=== PATIENT | female | born 1995 | race Caucasian/White ===

== ENCOUNTER → 2018-04-19 19:36 | Outpatient (CLI) | payer OTHER, SELFPAY ==
--- NOTE | 2018-04-19 19:43 | DI.RAD.S_ITS ---
PROCEDURE: XR WRIST RT MIN 3V INDICATIONS: pain right wrist-FOOSH 3 weeks ago TECHNIQUE: 3 views of the wrist were acquired. COMPARISON: [facility], , FOREARM RIGHT, 09/06/2008, 13:17. FINDINGS: Bones: No definitive fractures or dislocations. There is a lucency in the area of triquetrum which may be caused by artifact. No suspicious bony lesions. Scaphoid view: Scaphoid is intact. Soft tissues: No suspicious soft tissue calcifications. IMPRESSION: 1. No definitive fracture. 2. Lucency in the triquetrum may be caused by artifact but a nondisplaced fracture cannot be excluded. Recommend a repeat x-ray in 7-10 days if clinical symptoms persist. Dictated by: Dacia Patel M.D. on 04/19/2018 at 20:34 Approved by: Dacia Patel M.D. on 04/19/2018 at 20:37
== END ==
PROVIDERS: Family Provider Pediatrics; PCP Family Medicine
DX: M25.531 Pain in right wrist (principal)
CPT/HCPCS: 73110

== ENCOUNTER 2018-05-11 07:30 | Outpatient (RCR) | payer OTHER, SELFPAY ==
--- NOTE | 2018-04-04 08:17 | PT.OTN ---
Addendum entered and electronically signed by Caro Ley, PT 04/04/18 16:00: Transition note: On March 29, 2018 our therapy services consisting of Speech, Occupational, and Physical Therapy transitioned from the [employer] electronic documentation system to a new [employer] electronic documentation system.?? All documentation prior to March 29 can be found under [employer] saved data. From March 29 forward all medical record documentation will be in [email or web address]. Original Note: Current Diagnoses Cervicalgia (04/04/18) Dorsalgia, unspecified (04/04/18) Abnormal posture (04/04/18) Weakness (04/04/18) Physical Therapy Treatment Note PT-OP-A Visit Information Start: 04/04/18 07:22 Freq: Status: Active Protocol: Activity Type Activity Date Activity User E-Sign Co-Sign Detail Recorded Client Recorded Date Recorded By Document 04/04/18 07:30 [facility] [id number] 04/04/18 08:16 [facility] 04/04/18 07:30 Out-Patient Physical Therapy Visit Information [Visit Information] -Visit Type Treatment Note -Visit Start Time 07:30 -Visit Stop Time 08:30 -Total Visit Minutes 60 -Number of STRAP SEWER Visits 0 PT-OP-C Subjective Start: 04/04/18 07:22 Freq: Status: Active Protocol: Activity Type Activity Date Activity User E-Sign Co-Sign Detail Recorded Client Recorded Date Recorded By Document 04/04/18 07:30 [facility] [id number] 04/04/18 08:16 [facility] 04/04/18 07:30 OP-PT Subjective [Patient Comments] -Patient Comments Pt reports doing HEP daily . Does them at night and that helps the most. PT-OP-Q Treatments Start: 04/04/18 07:22 Freq: Status: Active Protocol: Activity Type Activity Date Activity User E-Sign Co-Sign Detail Recorded Client Recorded Date Recorded By Document 04/04/18 07:30 [facility] [id number] 04/04/18 08:16 [facility] 04/04/18 07:30 Therapeutic Exercises [Supine Exercises] 2 -Supine Exercise Name scissors -Side bilateral -Reps/Minutes 2x10 1 -Supine Exercise Name foam roll: shoulder flex, abd, Habd -Side bilateral -Reps/Minutes 10 each [Sidelying Exercises] 1 -Sidelying Exercise Name hip abd at wall -Side bilateral -Reps/Minutes 2x10 [Other Exercises] 1 -Other Exercise Name Alt LE hip ext quadruped -Side bilateral -Reps/Minutes 15 Manual Therapy Treatment [Soft Tissue Mobilization] 1 -Body Location QL & Es -Mobilization Type Rolling -Intensity/Depth Moderate -Body Position Prone -Comments x15 min [Joint Mobilizations] 1 -Joint sacrum -Direction PA & caudal FM -Body Position Prone PT-OP-R Modalities Start: 04/04/18 07:22 Freq: Status: Active Protocol: Activity Type Activity Date Activity User E-Sign Co-Sign Detail Recorded Client Recorded Date Recorded By Document 04/04/18 07:30 [facility] [id number] 04/04/18 08:16 [facility] 04/04/18 07:30 Hot Pack/Cold Pack [Treatment] Hot Pack -Location lumbar & cervical -Patient Position Hooklying -Treatment Duration (minutes) 15 PT-OP-T Assessment and Plan Start: 04/04/18 07:22 Freq: Status: Active Protocol: Activity Type Activity Date Activity User E-Sign Co-Sign Detail Recorded Client Recorded Date Recorded By Document 04/04/18 07:30 [facility] [id number] 04/04/18 08:16 [facility] 04/04/18 07:30 Physical Therapy Assessment [Assessment Summary] -Assessment Pt requires cont cueing during core stabilization exercises. Physical Therapy Plan [Frequency and Duration] -Frequency of Treatment 2x/Week -Plan of Care End Date 05/20/18 [Next Visit Focus/Plan] -Next Visit Plan Advance core
--- NOTE | 2018-04-11 08:15 | PT.OTN ---
Current Diagnoses Cervicalgia (04/11/18) Dorsalgia, unspecified (04/11/18) Abnormal posture (04/11/18) Weakness (04/11/18) Physical Therapy Treatment Note PT-OP-A Visit Information Start: 04/04/18 07:22 Freq: Status: Active Protocol: Document 04/11/18 07:31 [facility] (Rec: 04/11/18 08:15 [facility] [id number]) Out-Patient Physical Therapy Visit Information Visit Information Visit Type Treatment Note Visit Start Time 07:30 Visit Stop Time 08:30 Total Visit Minutes 60 Visit Number 5 Number of LAB ANALYST Visits 0 PT-OP-C Subjective Start: 04/04/18 07:22 Freq: Status: Active Protocol: Document 04/11/18 07:31 [facility] (Rec: 04/11/18 08:15 [facility] [id number]) OP-PT Subjective Patient Comments Patient Comments Exercises going well.Pain is a lot better. Notes at the end of her work day is the worst. PT-OP-Q Treatments Start: 04/04/18 07:22 Freq: Status: Active Protocol: Document 04/11/18 07:31 [facility] (Rec: 04/11/18 08:15 [facility] [id number]) Therapeutic Exercises Supine Exercises 5 Supine Exercise Name axial elongation Reps/Minutes 4 4 Supine Exercise Name rolling out LE on foam roll 3 Supine Exercise Name foam roll marches then bugs Reps/Minutes 15 each 2 Supine Exercise Name scissors to dying bugs Side bilateral Reps/Minutes 2x10 1 Supine Exercise Name foam roll: shoulder flex, abd, Habd Side bilateral Reps/Minutes 10 each Sidelying Exercises 1 Sidelying Exercise Name hip abd at wall Side bilateral Reps/Minutes 2x10 Other Exercises 1 Other Exercise Name Alt LE hip ext quadruped Side bilateral Reps/Minutes 15 Manual Therapy Treatment Soft Tissue Mobilization 2 Body Location UT Mobilization Type Rolling Intensity/Depth Moderate 1 Body Location QL & Es Mobilization Type Rolling Intensity/Depth Moderate Body Position Prone Joint Mobilizations 3 Joint Thoracic Direction PA Comments T5-12 2 Joint Innominate Direction ER & caudal gliding Body Position Prone Comments FM 1 Joint sacrum Direction PA & caudal FM Body Position Prone PT-OP-R Modalities Start: 04/04/18 07:22 Freq: Status: Active Protocol: Document 04/11/18 07:31 [facility] (Rec: 04/11/18 08:15 [facility] [id number]) Hot Pack/Cold Pack Treatment Hot Pack Location lumbar & cervical Patient Position Hooklying Treatment Duration (minutes) 15 PT-OP-T Assessment and Plan Start: 04/04/18 07:22 Freq: Status: Active Protocol: Document 04/11/18 07:31 [facility] (Rec: 04/11/18 08:15 [facility] [id number]) Physical Therapy Assessment Assessment Summary Assessment Min cueing required for exercises for form. Pt is improving with SI mobility. Physical Therapy Plan Frequency and Duration Frequency of Treatment 2x/Week Plan of Care End Date 05/20/18 Next Visit Focus/Plan Next Visit Plan Cont to work on core & LE stability
--- NOTE | 2018-04-15 09:01 | PT.OTN ---
Current Diagnoses Cervicalgia (04/15/18) Dorsalgia, unspecified (04/15/18) Abnormal posture (04/15/18) Weakness (04/15/18) Physical Therapy Treatment Note PT-OP-A Visit Information Start: 04/04/18 07:22 Freq: Status: Active Protocol: Document 04/15/18 08:15 [facility] (Rec: 04/15/18 09:01 [facility] [id number]) Out-Patient Physical Therapy Visit Information Visit Information Visit Type Treatment Note Visit Start Time 08:15 Visit Stop Time 09:15 Total Visit Minutes 60 Visit Number 6 PT-OP-C Subjective Start: 04/04/18 07:22 Freq: Status: Active Protocol: Document 04/15/18 08:15 [facility] (Rec: 04/15/18 09:00 [facility] [id number]) OP-PT Subjective Patient Comments Patient Comments Pain has not been too bad. Patient Reported Progress Improving PT-OP-Q Treatments Start: 04/04/18 07:22 Freq: Status: Active Protocol: Document 04/15/18 08:15 [facility] (Rec: 04/15/18 09:00 [facility] [id number]) Gym Equipment Therapeutic Ball 2 Exercise Details knee ext Ball Size/Color 55 cm Body Position Sitting Reps/Duration 2x10 1 Exercise Details marching Ball Size/Color 55 cm Body Position Sitting Reps/Duration 2x10 Therapeutic Exercises Supine Exercises 6 Supine Exercise Name bridge with march Reps/Minutes 10 5 Supine Exercise Name axial elongation Reps/Minutes 4 3 Supine Exercise Name foam roll marches then bugs Reps/Minutes 15 each 1 Supine Exercise Name foam roll: shoulder flex, abd, Habd Side bilateral Reps/Minutes 10 each Manual Therapy Treatment Soft Tissue Mobilization 1 Body Location QL & Es Mobilization Type Rolling Intensity/Depth Moderate Body Position Prone Joint Mobilizations 4 Joint hip Direction on axis ER FM Body Position Prone Comments neuro re edu after 3 Joint Thoracic Direction PA Comments T5-12 2 Joint Innominate Direction ER & caudal gliding & ext Body Position Prone Comments FM 1 Joint sacrum Direction PA & caudal FM Body Position Prone PT-OP-R Modalities Start: 04/04/18 07:22 Freq: Status: Active Protocol: Document 04/15/18 08:15 [facility] (Rec: 04/15/18 09:01 [facility] [id number]) Hot Pack/Cold Pack Treatment Hot Pack Location lumbar & cervical Patient Position Hooklying Treatment Duration (minutes) 15 PT-OP-T Assessment and Plan Start: 04/04/18 07:22 Freq: Status: Active Protocol: Document 04/15/18 08:15 [facility] (Rec: 04/15/18 09:00 [facility] [id number]) Physical Therapy Assessment Assessment Summary Assessment Improving pelvic positioning with inc ease of mobilizations . Improving tolerance to advancing core control. Physical Therapy Plan Frequency and Duration Frequency of Treatment 2x/Week Plan of Care End Date 05/20/18 Next Visit Focus/Plan Next Visit Plan Cont to work on postural stability
--- NOTE | 2018-04-22 09:00 | PT.OTN ---
Current Diagnoses Cervicalgia (04/22/18) Dorsalgia, unspecified (04/22/18) Abnormal posture (04/22/18) Weakness (04/22/18) Physical Therapy Treatment Note PT-OP-A Visit Information Start: 04/04/18 07:22 Freq: Status: Active Protocol: Document 04/22/18 08:16 [facility] (Rec: 04/22/18 09:00 [facility] [id number]) Out-Patient Physical Therapy Visit Information Visit Information Visit Type Treatment Note Visit Start Time 08:15 Visit Stop Time 09:15 Total Visit Minutes 60 Visit Number 7 Number of LIME BURNER Visits 0 PT-OP-C Subjective Start: 04/04/18 07:22 Freq: Status: Active Protocol: Document 04/22/18 08:16 [facility] (Rec: 04/22/18 09:00 [facility] [id number]) OP-PT Subjective Patient Comments Patient Comments Pt reports falling over when doing exercises a couple weeks ago and spraining her wrist. Wearing a wrist brace. Pain has been a lot less than she is used to. Patient Reported Progress Improving PT-OP-Q Treatments Start: 04/04/18 07:22 Freq: Status: Active Protocol: Document 04/22/18 08:16 [facility] (Rec: 04/22/18 09:00 [facility] [id number]) Gym Equipment Therapeutic Ball 2 Exercise Details knee ext w/B shoulder flex Ball Size/Color 55 cm Body Position Sitting Reps/Duration 2x10 1 Exercise Details marching w/ alt flex Ball Size/Color 55 cm Body Position Sitting Reps/Duration 2x10 Therapeutic Exercises Supine Exercises 6 Supine Exercise Name bridge with march Reps/Minutes 10 5 Supine Exercise Name axial elongation Reps/Minutes 4 3 Supine Exercise Name foam roll marches then bugs Reps/Minutes 15 each 2 Supine Exercise Name scissors to dying bugs Side bilateral Equipment Used foam roll Reps/Minutes 2x10 Standing Exercises 3 Standing Exercise Name flex w/retract Side bilateral Resistance L2 Reps/Minutes 10 2 Standing Exercise Name ER Side bilateral Resistance L2 Reps/Minutes 10 1 Standing Exercise Name ext B Resistance L3 Manual Therapy Treatment Soft Tissue Mobilization 1 Body Location QL & Es Mobilization Type Rolling Intensity/Depth Moderate Body Position Prone Joint Mobilizations 4 Joint hip Direction on axis ER FM Body Position Prone Comments neuro re edu after 3 Joint Thoracic Direction PA Comments T5-12 & R UPA w/c/r rotation 2 Joint Innominate Direction ER & caudal gliding & ext Body Position Prone Comments FM 1 Joint sacrum Direction PA & caudal FM Body Position Prone PT-OP-R Modalities Start: 04/04/18 07:22 Freq: Status: Active Protocol: Document 04/22/18 08:16 [facility] (Rec: 04/22/18 09:00 [facility] [id number]) Hot Pack/Cold Pack Treatment Hot Pack Location lumbar & cervical Patient Position Hooklying Treatment Duration (minutes) 15 PT-OP-T Assessment and Plan Start: 04/04/18 07:22 Freq: Status: Active Protocol: Document 04/22/18 08:16 [facility] (Rec: 04/22/18 09:00 [facility] [id number]) Physical Therapy Assessment Assessment Summary Assessment Pt is improving with pelvic & sacral positioning. No pain with scapular stability exercises Physical Therapy Plan Frequency and Duration Frequency of Treatment 2x/Week Plan of Care End Date 05/20/18 Next Visit Focus/Plan Next Visit Plan Cont to work on postural stability Please Sign and Return: I have reviewed this Plan of Care and certify that the skilled therapy services above are required to meet the patient???s needs. Physician Signature Date Printed Name and Credentials Clinical Instructor Signature Printed Name and Credentials
--- NOTE | 2018-04-26 09:03 | PT.OTN ---
Current Diagnoses Cervicalgia (04/26/18) Dorsalgia, unspecified (04/26/18) Abnormal posture (04/26/18) Weakness (04/26/18) Physical Therapy Treatment Note PT-OP-A Visit Information Start: 04/04/18 07:22 Freq: Status: Active Protocol: Document 04/26/18 08:11 [facility] (Rec: 04/26/18 09:02 [facility] [id number]) Out-Patient Physical Therapy Visit Information Visit Information Visit Type Treatment Note Visit Start Time 08:15 Visit Stop Time 09:15 Total Visit Minutes 60 Visit Number 8 Number of DIRECTOR DIGITAL ANALYTICS Visits 0 PT-OP-C Subjective Start: 04/04/18 07:22 Freq: Status: Active Protocol: Document 04/26/18 08:11 [facility] (Rec: 04/26/18 09:02 [facility] [id number]) OP-PT Subjective Patient Comments Patient Comments Pt helped aunt go through boxes. Notes back and neck feel good. Wrist has twinges when putting pressure against it. PT-OP-Q Treatments Start: 04/04/18 07:22 Freq: Status: Active Protocol: Document 04/26/18 08:11 [facility] (Rec: 04/26/18 09:02 [facility] [id number]) Gym Equipment Therapeutic Ball 2 Exercise Details knee ext w/B shoulder flex Ball Size/Color 65 cm Body Position Sitting Reps/Duration 2x10 Therapeutic Exercises Supine Exercises 7 Supine Exercise Name B leg ext Reps/Minutes 10 6 Supine Exercise Name bridge with march Reps/Minutes 10 5 Supine Exercise Name axial elongation Reps/Minutes 4 3 Supine Exercise Name foam roll marches then bugs Reps/Minutes 15 each 1 Supine Exercise Name foam roll: shoulder flex, abd, Habd Side bilateral Reps/Minutes 10 each Standing Exercises 3 Standing Exercise Name flex w/retract Side bilateral Resistance L2 Reps/Minutes 20 2 Standing Exercise Name ER Side bilateral Resistance L2 Reps/Minutes 20 1 Standing Exercise Name ext B Resistance L3 Manual Therapy Treatment Soft Tissue Mobilization 1 Body Location QL & Es Mobilization Type Rolling Intensity/Depth Moderate Body Position Prone Joint Mobilizations 4 Joint hip Direction on axis ER FM Body Position Prone Comments neuro re edu after 3 Joint Thoracic Direction PA Comments T5-12 & R UPA w/c/r rotation 2 Joint Innominate Direction ER & caudal gliding & ext Body Position Prone Comments FM PT-OP-R Modalities Start: 04/04/18 07:22 Freq: Status: Active Protocol: Document 04/26/18 08:11 [facility] (Rec: 04/26/18 09:02 [facility] [id number]) Hot Pack/Cold Pack Treatment Hot Pack Location lumbar & cervical Patient Position Hooklying Treatment Duration (minutes) 15 PT-OP-T Assessment and Plan Start: 04/04/18 07:22 Freq: Status: Active Protocol: Document 04/26/18 08:11 [facility] (Rec: 04/26/18 09:02 [facility] [id number]) Physical Therapy Assessment Assessment Summary Assessment Pt required cueing for posture during exercises. Cont to improve with soft tissue tightness. Physical Therapy Plan Frequency and Duration Frequency of Treatment 2x/Week Plan of Care End Date 05/20/18 Next Visit Focus/Plan Next Visit Plan Cont to work on postural stability Please Sign and Return: I have reviewed this Plan of Care and certify that the skilled therapy services above are required to meet the patient???s needs. Physician Signature Date Printed Name and Credentials Clinical Instructor Signature Printed Name and Credentials
--- NOTE | 2018-05-06 08:15 | PT.OTN ---
Current Diagnoses Cervicalgia (05/06/18) Dorsalgia, unspecified (05/06/18) Abnormal posture (05/06/18) Weakness (05/06/18) Physical Therapy Treatment Note PT-OP-A Visit Information Start: 04/04/18 07:22 Freq: Status: Active Protocol: Document 05/06/18 07:33 [facility] (Rec: 05/06/18 08:14 [facility] [id number]) Out-Patient Physical Therapy Visit Information Visit Information Visit Type Treatment Note Visit Start Time 07:30 Visit Stop Time 08:15 Total Visit Minutes 55 Visit Number 9 Number of HARNESSMAKER Visits 0 PT-OP-C Subjective Start: 04/04/18 07:22 Freq: Status: Active Protocol: Document 05/06/18 07:33 [facility] (Rec: 05/06/18 08:14 [facility] [id number]) OP-PT Subjective Patient Comments Patient Comments Reports pain has been minimal. Missed last appt because her pillow shaker to wake her up has not been working. PT-OP-Q Treatments Start: 04/04/18 07:22 Freq: Status: Active Protocol: Document 05/06/18 07:33 [facility] (Rec: 05/06/18 08:14 [facility] [id number]) Therapeutic Exercises Supine Exercises 7 Supine Exercise Name B leg ext Reps/Minutes 10 6 Supine Exercise Name bridge with march Reps/Minutes 10 5 Supine Exercise Name axial elongation Reps/Minutes 4 3 Supine Exercise Name foam roll marches then bugs Reps/Minutes 15 each 1 Supine Exercise Name foam roll: shoulder flex, abd, Habd Side bilateral Reps/Minutes 10 each Sidelying Exercises 1 Sidelying Exercise Name abd vs wall Reps/Minutes 10 Standing Exercises 3 Standing Exercise Name flex w/retract Side bilateral Resistance L2 Reps/Minutes 20 2 Standing Exercise Name ER Side bilateral Resistance L2 Reps/Minutes 20 1 Standing Exercise Name ext B Resistance L4 Manual Therapy Treatment Soft Tissue Mobilization 1 Body Location QL & Es Mobilization Type Rolling Intensity/Depth Moderate Body Position Prone Joint Mobilizations 4 Joint hip Direction on axis ER FM Body Position Prone Comments neuro re edu after 3 Joint Thoracic Direction PA Comments T5-12 & R UPA w/c/r rotation 2 Joint Innominate Direction ER & caudal gliding & ext Body Position Prone Comments FM PT-OP-R Modalities Start: 04/04/18 07:22 Freq: Status: Active Protocol: Document 05/06/18 07:33 [facility] (Rec: 05/06/18 08:14 [facility] [id number]) Hot Pack/Cold Pack Treatment Hot Pack Location lumbar & cervical Patient Position Hooklying Treatment Duration (minutes) 15 PT-OP-T Assessment and Plan Start: 04/04/18 07:22 Freq: Status: Active Protocol: Document 05/06/18 07:33 [facility] (Rec: 05/06/18 08:14 [facility] [id number]) Physical Therapy Assessment Assessment Summary Assessment Pt is improved with mechanics during exercises. Min cueing for s/l abd & shoulder flex w/ retraction. Physical Therapy Plan Frequency and Duration Frequency of Treatment 2x/Week Plan of Care End Date 05/20/18 Next Visit Focus/Plan Next Note Type Treatment Note Next Visit Plan Review HEP to d/c next wed Please Sign and Return: I have reviewed this Plan of Care and certify that the skilled therapy services above are required to meet the patient?s needs. Physician Signature Date Printed Name and Credentials Clinical Instructor Signature Printed Name and Credentials
--- NOTE | 2018-05-09 08:14 | PT.OTN ---
Current Diagnoses Cervicalgia (05/09/18) Dorsalgia, unspecified (05/09/18) Abnormal posture (05/09/18) Weakness (05/09/18) Physical Therapy Treatment Note PT-OP-A Visit Information Start: 04/04/18 07:22 Freq: Status: Active Protocol: Document 05/09/18 07:33 [facility] (Rec: 05/09/18 08:14 [facility] [id number]) Out-Patient Physical Therapy Visit Information Visit Information Visit Type Treatment Note Visit Start Time 07:30 Visit Stop Time 08:25 Total Visit Minutes 55 PT-OP-C Subjective Start: 04/04/18 07:22 Freq: Status: Active Protocol: Document 05/09/18 07:33 [facility] (Rec: 05/09/18 08:14 [facility] [id number]) OP-PT Subjective Patient Comments Patient Comments Some stiffness Wednesday in [place]. Notes she did some activities at a [employer]. PT-OP-Q Treatments Start: 04/04/18 07:22 Freq: Status: Active Protocol: Document 05/09/18 07:33 [facility] (Rec: 05/09/18 08:14 [facility] [id number]) Therapeutic Exercises Supine Exercises 8 Supine Exercise Name flex & diagonal abdominal series 7 Supine Exercise Name B leg ext Reps/Minutes 10 6 Supine Exercise Name bridge with march Reps/Minutes 10 5 Supine Exercise Name axial elongation Reps/Minutes 4 3 Supine Exercise Name foam roll marches then bugs Reps/Minutes 15 each 1 Supine Exercise Name foam roll: shoulder flex, abd, Habd Side bilateral Reps/Minutes 10 each Sidelying Exercises 1 Sidelying Exercise Name abd vs wall Reps/Minutes 10 Standing Exercises 4 Standing Exercise Name corner pec stretch Reps/Minutes 45 sec 3 Standing Exercise Name flex w/retract Side bilateral Resistance L2 Reps/Minutes 20 2 Standing Exercise Name ER Side bilateral Resistance L2 Reps/Minutes 20 1 Standing Exercise Name ext B Resistance L4 Manual Therapy Treatment Soft Tissue Mobilization 1 Body Location QL & Es Mobilization Type Rolling Intensity/Depth Moderate Body Position Prone PT-OP-R Modalities Start: 04/04/18 07:22 Freq: Status: Active Protocol: Document 05/09/18 07:33 [facility] (Rec: 05/09/18 08:14 [facility] [id number]) Hot Pack/Cold Pack Treatment Hot Pack Location lumbar & cervical Patient Position Hooklying Treatment Duration (minutes) 15 PT-OP-T Assessment and Plan Start: 04/04/18 07:22 Freq: Status: Active Protocol: Document 05/09/18 07:33 [facility] (Rec: 05/09/18 08:14 [facility] [id number]) Physical Therapy Assessment Assessment Summary Assessment Min cueing still required with abdominal series, s/l abd, shoulder exercises & axial elongation. Physical Therapy Plan Frequency and Duration Frequency of Treatment 2x/Week Plan of Care End Date 05/20/18 Next Visit Focus/Plan Next Note Type Treatment Note Next Visit Plan Review HEP to d/c wed Please Sign and Return: I have reviewed this Plan of Care and certify that the skilled therapy services above are required to meet the patient?s needs. Physician Signature Date Printed Name and Credentials Clinical Instructor Signature Printed Name and Credentials
--- NOTE | 2018-05-11 08:18 | PT.OTN ---
Current Diagnoses Cervicalgia (05/11/18) Dorsalgia, unspecified (05/11/18) Abnormal posture (05/11/18) Weakness (05/11/18) Physical Therapy Treatment Note PT-OP-A Visit Information Start: 04/04/18 07:22 Freq: Status: Active Protocol: Document 05/11/18 07:30 [facility] (Rec: 05/11/18 08:17 [facility] [id number]) Out-Patient Physical Therapy Visit Information Visit Information Visit Type Discharge Summary Visit Start Time 07:30 Visit Stop Time 08:25 Total Visit Minutes 55 Visit Number 10 PT-OP-C Subjective Start: 04/04/18 07:22 Freq: Status: Active Protocol: Document 05/11/18 07:30 [facility] (Rec: 05/11/18 08:17 [facility] [id number]) OP-PT Subjective Patient Comments Patient Comments Overall pain is significantly better. No worse than 2-3/10. Patient Questionnaires Oswestry Low Back Index Oswestry Score 6 PT-OP-M Strength Start: 05/11/18 07:30 Freq: Status: Active Protocol: Document 05/11/18 07:30 [facility] (Rec: 05/11/18 08:17 [facility] [id number]) Shoulder Strength Shoulder Manual Muscle Testing Right Flexion 5 Normal Extension 5 Normal Abduction (C5) 5 Normal External Rotation 4+ Good+ Internal Rotation 5 Normal Left Flexion 4+ Good+ Extension 5 Normal Abduction (C5) 4+ Good+ External Rotation 4+ Good+ Internal Rotation 5 Normal Hip Strength Hip Manual Muscle Testing Right Flexion (L2) 5 Normal Extension (S1) 4+ Good+ Abduction 4+ Good+ External Rotation 5 Normal Internal Rotation 5 Normal Left Flexion (L2) 4+ Good+ Extension (S1) 4+ Good+ Abduction 4+ Good+ External Rotation 5 Normal Internal Rotation 4+ Good+ Comments knee & ankle strength 5/5 PT-OP-Q Treatments Start: 04/04/18 07:22 Freq: Status: Active Protocol: Document 05/11/18 07:30 [facility] (Rec: 05/11/18 08:17 [facility] [id number]) Therapeutic Exercises Supine Exercises 8 Supine Exercise Name flex & diagonal abdominal series 5 Supine Exercise Name axial elongation Reps/Minutes 4 Sidelying Exercises 1 Sidelying Exercise Name abd vs wall Reps/Minutes 10 Standing Exercises 5 Standing Exercise Name wall posture Reps/Minutes 10 4 Standing Exercise Name corner pec stretch Reps/Minutes 45 sec 3 Standing Exercise Name flex w/retract Side bilateral Resistance L2 Reps/Minutes 20 2 Standing Exercise Name ER Side bilateral Resistance L2 Reps/Minutes 20 1 Standing Exercise Name ext B Resistance L4 Manual Therapy Treatment Soft Tissue Mobilization 1 Body Location QL & Es Mobilization Type Rolling Intensity/Depth Moderate Body Position Prone PT-OP-R Modalities Start: 04/04/18 07:22 Freq: Status: Active Protocol: Document 05/11/18 08:18 [facility] (Rec: 05/11/18 08:18 [facility] [id number]) Hot Pack/Cold Pack Treatment Hot Pack Location lumbar & cervical Patient Position Hooklying Treatment Duration (minutes) 15 PT-OP-T Assessment and Plan Start: 04/04/18 07:22 Freq: Status: Active Protocol: Document 05/11/18 07:30 [facility] (Rec: 05/11/18 08:17 [facility] [id number]) Physical Therapy Assessment Progress Towards Goals Progress Towards Goals Progressing Toward Goals Goals Met Progress Comments Pt has improved significantly with posture to achieve her posture goal of functional posture. Pt has improved with strength with close 5/5 strength overall. She is indep with HEP to cont to progress. Pain goal has been achieved. Pt is participating with all activities with min pain and has only 1 ATKINSON a week. Good core control with tessting and improved gait. Assessment Summary Assessment Min cueing with exercises reviewed, but overall pt indep with all exercises. Physical Therapy Plan Discharge Physical Therapy Discharge Reasons Plateau in Progress Discharge Comments Pt is indep with HEP & has met some goals or is progressing well towards those goals in order to cont to build strength & dec pain. Please Sign and Return: I have reviewed this Plan of Care and certify that the skilled therapy services above are required to meet the patient?s needs. Physician Signature Date Printed Name and Credentials Clinical Instructor Signature Printed Name and Credentials
--- NOTE | 2018-05-11 08:20 | PT.OPDS ---
Current Diagnoses Cervicalgia (05/11/18) Dorsalgia, unspecified (05/11/18) Abnormal posture (05/11/18) Weakness (05/11/18) Provider Visit Care Team Role Provider Type Eyal Lai MD Family Provider Physician Specialty: Pediatrics Address: [address] [place] [address] Email: [email or web address] Dionne Millard DO Attending Provider Physician Primary Care Provider Specialty: Family Practice Address: [address] [place] [address], [id number] Email: [email or web address] Discharge Summary PT-OP-C Subjective Start: 04/04/18 07:22 Freq: Status: Active Protocol: Document 05/11/18 07:30 [facility] (Rec: 05/11/18 08:17 [facility] [id number]) OP-PT Subjective Patient Comments Patient Comments Overall pain is significantly better. No worse than 2-3/10. Patient Questionnaires Oswestry Low Back Index Oswestry Score 6 PT-OP-M Strength Start: 05/11/18 07:30 Freq: Status: Active Protocol: Document 05/11/18 07:30 [facility] (Rec: 05/11/18 08:17 [facility] [id number]) Shoulder Strength Shoulder Manual Muscle Testing Right Flexion 5 Normal Extension 5 Normal Abduction (C5) 5 Normal External Rotation 4+ Good+ Internal Rotation 5 Normal Left Flexion 4+ Good+ Extension 5 Normal Abduction (C5) 4+ Good+ External Rotation 4+ Good+ Internal Rotation 5 Normal Hip Strength Hip Manual Muscle Testing Right Flexion (L2) 5 Normal Extension (S1) 4+ Good+ Abduction 4+ Good+ External Rotation 5 Normal Internal Rotation 5 Normal Left Flexion (L2) 4+ Good+ Extension (S1) 4+ Good+ Abduction 4+ Good+ External Rotation 5 Normal Internal Rotation 4+ Good+ Comments knee & ankle strength 5/5 PT-OP-T Assessment and Plan Start: 04/04/18 07:22 Freq: Status: Active Protocol: Document 05/11/18 07:30 [facility] (Rec: 05/11/18 08:17 [facility] [id number]) Physical Therapy Assessment Progress Towards Goals Progress Towards Goals Progressing Toward Goals Goals Met Progress Comments Pt has improved significantly with posture to achieve her posture goal of functional posture. Pt has improved with strength with close 5/5 strength overall. She is indep with HEP to cont to progress. Pain goal has been achieved. Pt is participating with all activities with min pain and has only 1 ATKINSON a week. Good core control with tessting and improved gait. Assessment Summary Assessment Min cueing with exercises reviewed, but overall pt indep with all exercises. Physical Therapy Plan Discharge Physical Therapy Discharge Reasons Plateau in Progress Discharge Comments Pt is indep with HEP & has met some goals or is progressing well towards those goals in order to cont to build strength & dec pain.
== END 2018-07-14 11:15 ==
LOC: PHYS 07:30
PROVIDERS: Family Provider Pediatrics; PCP Family Medicine; Visit Provider Family Medicine
DX: M54.9 Dorsalgia, unspecified (principal); R53.1 Weakness; R29.3 Abnormal posture; M54.2 Cervicalgia
CPT/HCPCS: 97010; 97110; 97140